=== PATIENT | female | born 1975 ===

== ENCOUNTER 2016-12-09 20:10 | Emergency (ER) | payer OTHER ==
[2016-12-09 21:33] VITALS: BP 114/77; PULSE 77; RESP 16; TEMP 98.3; O2SAT 100
--- NOTE | 2016-12-09 22:31 | ED PDOC ---
HPI: Eye Injury/Pain Time Seen by Provider: 12/09/16 22:20 Chief Complaint (Nursing): Eye Problem Chief Complaint (Provider): right eye pain History Per: Patient Additional Complaint(s): 41 year old female with no past medical history presents to ED for evaluation of pain to right eye. Patient states that for the past 2-3 weeks she has had intermittent pain to right eye with slight blurred vision. This evening she was looking at her tablet when she noticed blurred vision from right eye that lasted for about 10 minutes and then resolved. She went to an urgent care center and was told to come to ED. Upon arrival patient states that the visual disturbance has resolved and now she has slight headache and slight pain to right eye. Patient denies any associated facial or upper or lower extremity numbness. She denies any slurred speech. Patient rates current pain as a 2 out of 10. She denies any diplopia. Patient states left eye is unaffected. Patient denies any discharge or FB sensation to right eye. She wears reading glasses but does not wear any contacts. Past Medical History Reviewed: Historical Data, Nursing Documentation, Vital Signs Vital Signs: Last Vital Signs Temp 98.3 F 12/09/16 21:19 Pulse 77 12/09/16 21:19 Resp 16 12/09/16 21:19 BP 114/77 12/09/16 21:19 Pulse Ox 100 12/09/16 21:19 - Medical History PMH: No Chronic Diseases - Surgical History Other surgeries: myomectomy, hysterectomy - Family History Family History: States: No Known Family Hx - Living Arrangements Living Arrangements: With Family - Home Medications Home Medications: Ambulatory Orders Medication Instructions Recorded Follitropin Beta,Recomb [Follistim 300 unit SQ DAILY 08/12/15 Aq] Leuprolide Acetate [Lupron Depot] 40 mg IM DAILY 08/12/15 Levothyroxine [Synthroid] 0.05 mg PO DAILY 08/12/15 Menotrop 75 iu PO BID 08/12/15 - Allergies Allergies/Adverse Reactions: Allergies Allergy/AdvReac Type Severity Reaction Status Date / Time No Known Allergies Allergy Verified 04/22/16 04:11 Review of Systems ROS Statement: Except As Marked, All Systems Reviewed And Found Negative Constitutional: Negative for: Fever, Chills, Weakness Eyes: Positive for: Other (right eye pain and vision change - intermittent for 2 -3 weeks) Cardiovascular: Negative for: Chest Pain, Palpitations Gastrointestinal: Negative for: Nausea, Vomiting Neurological: Positive for: Headache. Negative for: Weakness, Numbness, Incoordination, Change in Speech, Confusion, Seizures, Altered Mental Status, Dizziness Physical Exam - Reviewed Nursing Documentation Reviewed: Yes Vital Signs Reviewed: Yes - Physical Exam Appears: Positive for: Well, Non-toxic, No Acute Distress Skin: Negative for: Rash Eye Exam: Positive for: Normal appearance, EOMI, PERRL, Other (Right eye - no uptake with flouroscein and tetracaine examination). Negative for: Nystagmus, Periorbital swelling, Periorbital tenderness, Conjunctival injection, Scleral icterus ENT: Positive for: Normal ENT Inspection Neck: Positive for: Normal Cardiovascular/Chest: Positive for: Regular Rate, Rhythm Respiratory: Positive for: Normal Breath Sounds Neurologic/Psych: Positive for: Alert, crocheter hand II-XII (intact), Oriented, Gait ( steady). Negative for: Motor/Sensory Deficits, Aphasia, Facial Droop - ECG O2 Sat by Pulse Oximetry: 100 Pulse Ox Interpretation: Normal - Other Rad CT head X-Ray: Read By Radiologist X-Ray Interpretation: no acute finding Medical Decision Making Medical Decision Makin year with right eye pain and blurred vision for 2-3 weeks Plan: CT head CT is negative. Case was discussed with Dr. Houston, ophthalmology assistant store manager operations. He states he can see patient in his office at 10 am tomorrow morning. Patient agrees with plan. Disposition - Clinical Impression Clinical Impression: Eye pain - Patient ED Disposition Is Patient to be Admitted: No Counseled Patient/Family Regarding: Diagnosis, Need For Followup - Disposition Referrals: Nabeel Houston MD [Staff Provider] - Disposition: Routine/Home Disposition Time: 23:29 Condition: STABLE Additional Instructions: GO DIRECTLY TO DR. HOUSTON'S OFFICE AT 10 AM TOMORROW. Instructions: Eye Pain (ED)
--- NOTE | 2016-12-10 10:02 | CT ---
PROCEDURE: CT HEAD WITHOUT CONTRAST. HISTORY: headache, blurred vision COMPARISON: None available. TECHNIQUE: Axial computed tomography images were obtained through the head/brain without intravenous contrast. Radiation dose: Total exam DLP = 834.26 mGy-cm. This CT exam was performed using one or more of the following dose reduction techniques: Automated exposure control, adjustment of the mA and/or kV according to patient size, and/or use of iterative reconstruction technique. FINDINGS: HEMORRHAGE: No intracranial hemorrhage. BRAIN: No mass effect or edema. No atrophy or chronic microvascular ischemic changes. VENTRICLES: Unremarkable. No hydrocephalus. CALVARIUM: Unremarkable. PARANASAL SINUSES: Unremarkable as visualized. No significant inflammatory changes. MASTOID AIR CELLS: Unremarkable as visualized. No inflammatory changes. OTHER FINDINGS: None. IMPRESSION: No CT evidence of acute intracranial hemorrhage or acute territorial infarct. Acute infarction may be CT occult within first 24 hours. If a focal deficit persists, consider followup CT or MRI for further evaluation.
== END 2016-12-09 23:33 | disposition home or self-care (01) ==
LOC: H.ER 20:10
DX: H53.8 Other visual disturbances (principal); R51 Headache